=== PATIENT | female | born 1935 | race African-American/Black ===

== ENCOUNTER 2019-04-20 10:53 | Emergency (ER) | payer OTHER ==
--- NOTE | 2019-04-20 11:02 | PDOC ---
History of Present Illness - General History Source: Patient Exam Limitations: No Limitations - History of Present Illness Initial Comments: 04/20/19 10:57 HPI: 83yo F pmh HTN, CAD, renal failure, presenting from PCP office with chest discomfort for three days and EKG changes. Patient denies chest pain, endorsing a mild, non-exertional, non-radiating, substernal chest discomfort that has been constant since Monday 04/17, no aggravating or alleviating factors identified. Feels as though she needs to belch, but she is unable to, and when she does it does not provide relief. No exertion related pain or dyspnea, no edema. Denies nausea, vomiting, dizziness, shortness of breath. No recent travel / immobilization, no recent illnesses or trauma to the chest wall. Patient takes 81mg ASA daily. Patient called her education adviser (Dr. Pena, [facility]) yesterday and was told to go to the ER for her chest discomfort, she made an appointment with Dr. Mcallister who did an EKG demonstrating <1mm ST elevations in V3 , V4 that were different than on prior EKG. All: NKDA Meds: Per chart PMH: As above PSH: As above SHx: Denies toxic habits, never smoker <Robert Carreon - Last Filed: 04/20/19 14:37> <Doris Benjamin - Last Filed: 04/20/19 14:44> - General Chief Complaint: Chest Pain Stated Complaint: EKG CHANGES Time Seen by Provider: 04/20/19 10:54 Past History - Travel Traveled outside of the country in the last 30 days: No Close contact w/someone who was outside of country & ill: No - Past Medical History Anemia: Yes (SLIGHTLY ANEMIC) Asthma: No Cancer: No Cardiac Disorders: No CVA: No COPD: No CHF: No Dementia: No Diabetes: No GI Disorders: Yes (GERD) Disorders: No HTN: Yes Hypercholesterolemia: No Liver Disease: No Seizures: No Thyroid Disease: No - Surgical History Abdominal Surgery: No Appendectomy: No Cardiac Surgery: No Cholecystectomy: No Lung Surgery: No Neurologic Surgery: No Orthopedic Surgery: No - Psycho Social/Smoking Cessation Hx Smoking History: Never smoked Have you smoked in the past 12 months: No Hx Alcohol Use: No Drug/Substance Use Hx: No Substance Use Type: None Hx Substance Use Treatment: No <Robert Carreon - Last Filed: 04/20/19 14:37> <Doris Benjamin - Last Filed: 04/20/19 14:44> - Past Medical History Allergies/Adverse Reactions: Allergies Allergy/AdvReac Type Severity Reaction Status Date / Time No Known Drug Allergies Allergy Verified 04/20/19 10:55 Home Medications: Ambulatory Orders Amlodipine Bes/Olmesartan Med [Amlodipine-Olmesartan 10-40 mg] 1 each PO DAILY 12/16/17 Famotidine [Pepcid] 40 mg PO DAILY 12/16/17 Hydrochlorothiazide 50 mg PO DAILY 12/16/17 Aspirin [ASA -] 81 mg PO DAILY 04/20/19 Review of Systems - Review of Systems Able to Perform ROS?: Yes Is the patient limited Somali proficient: Yes Constitutional: No: Chills, Diaphoresis, Fever, Weakness HEENTM: No: Nose Congestion, Throat Pain Respiratory: Yes: Cough (chronic, dry). No: Orthopnea, Shortness of Breath, SOB with Exertion, SOB at Rest, Productive cough Cardiac (ROS): Yes: See HPI, Other (chest discomfort as per HPI). No: Chest Pain, Edema, Irregular Heart Rate, Lightheadedness, Palpitations, Syncope ABD/GI: No: Constipated, Diarrhea, Nausea, Poor Appetite, Poor Fluid Intake, Vomiting : No: Burning, Dysuria, Discharge, Frequency Musculoskeletal: No: Muscle Pain, Muscle Weakness Integumentary: No: Bruising, Erythema, Pruritus, Rash, Sweating Neurological: No: Headache, Numbness, Tingling, Weakness Psychiatric: No: Stressors, Change in Appetite Endocrine: No: Increased Thirst, Increased Urine Hematologic/Lymphatic: No: Anemia, Blood Clots, Easy Bleeding All Other Systems: Reviewed and Negative <Robert Carreon - Last Filed: 04/20/19 14:37> *Physical Exam - Physical Exam 04/20/19 11:38 Vitals reviewed, AFVSS GEN: Elderly woman, Well appearing, appears stated age, NAD, comfortable. AAOx3. HEENT: NCAT, EOMI. Sclera anicteric, non-injected. Moist mucous membranes. Normal voice. Trachea midline. CV: RRR, S1/S2, +ejection murmur heard best at right sternal margin. LUNG: CTAB, normal work of breathing. No wheezes, rales, rhonchi. No cough. Speaking full sentences. GI: Soft, NTND, no guarding, no rebound. No masses. EXTREMITIES: 2+ distal pulses. No LE edema. No obvious deformities of all extremities. SKIN: Warm, dry, no rashes appreciated, non-jaundiced. PSYCH: Normal mood and affect. Cooperative and appropriate. NEURO: CN grossly intact. Moving all extremities well. Normal strength and sensation grossly. <Robert Carreon - Last Filed: 04/20/19 14:37> - Vital Signs Last Vital Signs Temp Pulse Resp BP Pulse Ox 97.8 F 56 L 20 110/58 L 100 04/20/19 10:53 04/20/19 12:09 04/20/19 12:09 04/20/19 12:09 04/20/19 12:09 <Doris Benjamin - Last Filed: 04/20/19 14:44> Heart Score/ECG Review - History History: Moderately suspicious - Electrocardiogram EKG: Non specific repolarization disturbance - Age Age: >/= 65 - Risk Factors Based on the list above the patient has:: >/=3 risk factors or Hx atherosclerotic disease - Troponin Troponin: </= normal limit - Score Heart Score - Total: 6 <Robert Carreon - Last Filed: 04/20/19 14:37> ED Treatment Course - LABORATORY CBC & Chemistry Diagram: 04/20/19 11:29 04/20/19 11:29 <Robert Carreon - Last Filed: 04/20/19 14:37> - LABORATORY CBC & Chemistry Diagram: 04/20/19 11:29 04/20/19 11:29 - ADDITIONAL ORDERS Additional order review: Laboratory Results 04/20/19 04/20/19 04/20/19 11:29 11:29 11:29 PT with INR 12.3 INR 1.10 PTT (Actin FS) 25.8 Sodium 138 Potassium 4.6 Chloride 105 Carbon Dioxide 26 Anion Gap 7 L BUN 34.0 H Creatinine 1.9 H Est GFR (CKD-EPI)AfAm 28.16 Est GFR (CKD-EPI)NonAf 24.30 Random Glucose 102 Calcium 9.4 Total Bilirubin 1.3 H AST 32 ALT 17 Alkaline Phosphatase 44 L Creatine Kinase 159 Creatine Kinase Index 1.5 CK-MB (CK-2) 2.5 Troponin I Total Protein 6.9 Albumin 4.2 04/20/19 11:29 PT with INR INR PTT (Actin FS) Sodium Potassium Chloride Carbon Dioxide Anion Gap BUN Creatinine Est GFR (CKD-EPI)AfAm Est GFR (CKD-EPI)NonAf Random Glucose Calcium Total Bilirubin AST ALT Alkaline Phosphatase Creatine Kinase Creatine Kinase Index CK-MB (CK-2) Troponin I < 0.03 Total Protein Albumin 04/20/19 11:29 RBC 3.90 MCV 95.5 MCHC 32.8 RDW 14.4 MPV 7.5 Neutrophils % 49.7 Lymphocytes % 37.7 Monocytes % 9.6 Eosinophils % 2.2 Basophils % 0.8 - Medications Given in the ED: ED Medications Discontinued Medications Generic Name Dose Route Start Last Admin Trade Name Freq PRN Reason Stop Dose Admin Sodium Chloride 500 ml 04/20/19 14:02 04/20/19 14:38 Normal Saline - IV 04/20/19 14:03 Not Given ONCE ONE <Doris Benjamin - Last Filed: 04/20/19 14:44> Medical Decision Making - Medical Decision Making 04/20/19 11:02 83yo F pmh HTN, CAD, renal failure, presenting from PCP office with chest discomfort for three days and EKG changes. HEART Score 6 assuming normal Troponin. - CBC, CMP, Cardiac Profile, Coags - EKG, CXR EKbpm, NSR, normal axis, normal intervals (QTc 402), 0.5mm ST elevation in V4, V5 resolved since PCP EKG 04/20/19 12:30 - Cr 1.9, baseline normal CR - Ordered urine creatinine, sodium, protein, UA - Troponin negative Admit: Tele r/o ACS, PERICO 04/20/19 14:37 Patient requested to leave AMA. Patient is determined to be of sound mind and reasoning. The patient fully understands the care they are refusing and the risks associated with leaving before complete medical evaluation as explained by the medical team. The patient has been provided with a discharge summary, return precautions, and the reassurance that the Emergency Department will resume workup if the patient changes their mind. Immediate primary care follow up has been urged. <Robert Carreon - Last Filed: 04/20/19 14:37> Discharge - Discharge Information Problems reviewed: Yes - Admission Yes <Robert Carreon - Last Filed: 04/20/19 14:37> - Discharge Information Problems reviewed: Yes - Admission No <Doris Benjamin - Last Filed: 04/20/19 14:44> - Discharge Information Clinical Impression/Diagnosis: Chest pain, rule out acute myocardial infarction, PERICO (acute kidney injury) Condition: Guarded Disposition: AGAINST MEDICAL ADVICE - Patient Discharge Instructions Patient Printed Discharge Instructions: DI for Chest Pain Additional Instructions: You are leaving against medical advice and refusing evaluation and treatment of chest pain concerning for acute coronary syndrome (heart attack). It is essential that you follow up with your primary care physician within the next 1-2 days. Please return to the Emergency Department if you change your mind and wish to continue evaluation of your symptoms or if you experience any of the following: - worsening of your symptoms - chest pain - shortness of breath and/or difficulty breathing - seizure - changes in behavior - lightheadedness, and/or dizziness - severe abdominal pain - severe or bloody vomiting - bloody diarrhea - inability to eat or drink - anything that concerns you
[2019-04-20 11:05] VITALS: TEMP 97.8; BMI 29.9
--- NOTE | 2019-04-20 11:18 | PDOC ---
Attending Attestation - Resident Resident Name: Robert Carreon - ED Attending Attestation I have performed the following: I have examined & evaluated the patient, The case was reviewed & discussed with the resident, I agree w/resident's findings & plan, Exceptions are as noted - HPI HPI: 83 yo F history HTN, CAD, CKD sent by Dr. Meier for 3 day history of chest discomfort with EKG changes noted in precordial leads. Pt describes her symptoms as discomfort, substernal, nonradiating, associated with sensation as if she needs to belch. Denies N/V, SOB, leg swelling. She contacted her inspection manager, who recommended she go to the ED. She followed up at Dr. Mcallister's office, and they referred her to the ED. - Physicial Exam PE: GENERAL: Awake, alert, and fully oriented, in no acute distress HEAD: No signs of trauma EYES: PERRLA, EOMI, sclera anicteric, conjunctiva clear ENT: Auricles normal inspection, hearing grossly normal, nares patent, oropharynx clear without exudates. Moist mucosa NECK: Normal ROM, supple, no lymphadenopathy, JVD, or masses LUNGS: Breath sounds equal, clear to auscultation bilaterally. No wheezes, and no crackles HEART: Regular rate and rhythm, normal S1 and S2, no murmurs, rubs or gallops ABDOMEN: Soft, nontender, normoactive bowel sounds. No guarding, no rebound. No masses EXTREMITIES: Normal range of motion, no edema. No clubbing or cyanosis. No cords, erythema, or tenderness NEUROLOGICAL: Cranial nerves II through XII grossly intact. Normal speech, normal gait. Motor and sensation intact SKIN: Warm, dry, normal turgor, no rashes or lesions noted. - Medical Decision Making Pt with cardiac risk factors, presenting with EKG changes on outpatient EKG, largely resolved now (except in V4). Will prepare for admission for cardiac evaluation.
[2019-04-20 11:38] LABS: BASO % 0.8 % (0-2.0); EOS % 2.2 % (0-4.5); HEMATOCRIT 37.3 % (32.4-45.2); HEMOGLOBIN 12.2 GM/dl (10.7-15.3); LYMPH % 37.7 % (8-40); MCH 31.3 pg (25.7-33.7); MCHC 32.8 g/dl (32.0-36.0); MEAN CELL VOLUME 95.5 fl (80-96); MEAN PLT VOLUME 7.5 fl (7.5-11.1); MONO % 9.6 % (3.8-10.2); NEUT % 49.7 % (42.8-82.8); PLATELET COUNT 245 K/MM3 (134-434); RDW 14.4 % (11.6-15.6); WHITE BLOOD COUNT 5.1 K/mm3 (4.0-10.8)
[2019-04-20 12:01] LABS: ALBUMIN 4.2 g/dl (3.4-5.0); BILIRUBIN,TOTAL 1.3 mg/dl (0.2-1); CALCIUM 9.4 mg/dl (8.5-10); CREATININE 1.9 mg/dl (0.55-1.3); POTASSIUM 4.6 mmol/L (3.5-5.1); TOT PROT 6.9 g/dl (6.4-8.2)
[2019-04-20 12:06] LABS: INR 1.1 (0.82-1.09); PROTHROMBIN TIME (PATIENT) 12.3 SEC (10.2-13.0)
[2019-04-20 12:15] VITALS: BP 110/58; PULSE 56
[2019-04-20] MEDS ORDERED: SODIUM CHLORIDE 0.9% 500 ML INFUS.BAG IV ONE (14:02)
--- NOTE | 2019-04-21 12:51 | EKG ---
Test Reason : Blood Pressure : / mmHG Vent. Rate : 061 BPM Atrial Rate : 061 BPM P-R Int : 166 ms QRS Dur : 096 ms QT Int : 400 ms P-R-T Axes : 053 050 060 degrees QTc Int : 402 ms NORMAL SINUS RHYTHM VOLTAGE CRITERIA FOR LEFT VENTRICULAR HYPERTROPHY EARLY REPOLARIZATION ABNORMAL ECG NO PREVIOUS ECGS AVAILABLE Confirmed by MAXINE SANCHEZ MD ([id number]) on 04/21/2019 12:50:32 PM Referred By: MAO COLES Confirmed By:MAXINE SANCHEZ MD
[2019-04-24 16:07] LABS: TOTAL PROTEIN, URINE 13.6 mg/dL (Not Estab.)
== END 2019-04-20 14:55 | disposition left against medical advice (07) ==
LOC: FER 10:53
DX: R07.9 Chest pain, unspecified (principal); I13.10 Hypertensive heart and chronic kidney disease without heart failure, with stage 1 through stage 4 chronic kidney disease, or unspecified chronic kidney disease; N18.9 Chronic kidney disease, unspecified; K21.9 Gastro-esophageal reflux disease without esophagitis
CPT/HCPCS: 36415; 71045-TC-FY; 80053; 81003; 81015; 82550; 82553; 82565; 84156; 84157; 84300; 84484; 85025; 85610; 85730; 93005; 99284-25

== ENCOUNTER 2019-05-18 07:23 | Day surgery (SDC) | payer OTHER ==
[2019-05-16 10:16] VITALS: BMI 27.8
[2019-05-18 07:41] VITALS: TEMP 98.2
[2019-05-18] MEDS ORDERED: PROPOFOL 20 ML ONE ×2 (07:42)
[2019-05-18] MEDS ORDERED: LIDOCAINE HCL/PF 2% SDV 5ML VIAL ONE (07:42)
[2019-05-18 09:36] VITALS: BP 135/65; PULSE 68
--- NOTE | 2019-05-19 15:47 | PATH ---
Surgical Pathology Report Patient Name: CHRIS DESIR [facility]. Rec. #: [id number] /Age/Gender: 1935 (Age: 83) / F Account: [id number] Location: [facility] Taken: 05/18/2019 Received: 05/18/2019 Reported: 05/19/2019 Physicians: Dread Ball M.D. Specimen(s) Received A: POLYP RIGHT COLON B: POLYP HEPATIC FLEXURE C: POLYPECTOMY TRANSVERSE COLON Clinical History Screening Postoperative diagnosis: Colon polyps, diverticulosis Final Diagnosis A. COLON, RIGHT, POLYP, BIOPSY: TUBULAR ADENOMA. B. COLON, HEPATIC FLEXURE, POLYP, BIOPSY: TUBULAR ADENOMA. C. TRANSVERSE COLON, POLYPECTOMY: TUBULAR ADENOMA. Electronically Signed Tracey Jeffries M.D. Gross Description A. Received in formalin, labeled "biopsy polyp right colon" is a quiñonez, irregular portion of soft tissue measuring 0.5 cm. in greatest dimension. The specimen is submitted in toto in one cassette. B. Received in formalin, labeled "biopsy polyp hepatic flexure" are 2 quiñonez, irregular portions of soft tissue measuring 0.3 and 0.5 cm. in greatest dimension. The specimens are submitted in toto in one cassette. C. Received in formalin, labeled "polypectomy transverse colon" are 2 quiñonez, irregular portions of soft tissue measuring 0.4 and 0.5 cm. in greatest dimension. The specimens are submitted in toto in one cassette. DL/05/18/2019 saudi/05/18/2019
== END 2019-05-18 09:45 | disposition home or self-care (01) ==
LOC: FASU-ENDO 07:23
PROVIDERS: ATTEND Internal Medicine Gastroenterology
PROC: 0DBL8ZX Excision of Transverse Colon, Via Natural or Artificial Opening Endoscopic, Diagnostic (ICD-10-PCS; 2019-05-18)
PROC: 0DBK8ZX Excision of Ascending Colon, Via Natural or Artificial Opening Endoscopic, Diagnostic (ICD-10-PCS; 2019-05-18)
PROC: 0DBK8ZX Excision of Ascending Colon, Via Natural or Artificial Opening Endoscopic, Diagnostic (ICD-10-PCS; principal; 2019-05-18 08:34)
DX: Z12.11 Encounter for screening for malignant neoplasm of colon (principal); D12.2 Benign neoplasm of ascending colon; D12.3 Benign neoplasm of transverse colon
CPT/HCPCS: 88305-TC

== ENCOUNTER 2023-01-04 05:03 | Day surgery (SDC) | payer BC, OTHER ==
[2022-12-31 14:11] VITALS: BMI 24.7
[2023-01-04] MEDS ORDERED: ONABOTULINUMTOXINA 200 UNIT/VIAL VIAL IM ONE (12:11)
[2023-01-04 14:23] VITALS: RESP 18
[2023-01-04 14:27] VITALS: BP 140/64; PULSE 70; TEMP 97.2
== END 2023-01-04 14:00 | disposition home or self-care (01) ==
LOC: JASU-SURG 05:03
PROVIDERS: ATTEND Surgery
PROC: 3E023GC Introduction of Other Therapeutic Substance into Muscle, Percutaneous Approach (ICD-10-PCS; principal; 2023-01-04 12:00)
DX: K43.9 Ventral hernia without obstruction or gangrene (principal)
CPT/HCPCS: 94760; J0585

== ENCOUNTER 2024-07-15 19:49 | Emergency (ER) | payer BC, OTHER ==
[2024-07-15 20:20] VITALS: BP 140/60; PULSE 74; RESP 16; TEMP 98.8; BMI 24.0
[2024-07-15 20:47] LABS: EPITHELIAL CELLS 0-2 /hpf
[2024-07-15 21:07] LABS: ABSOLUTE IMMATURE GRANULOCYTES 0.01 x10^3/uL (0.0-0.031); BASOPHILS # 0.01 x10^3/uL (0.01-0.08); EOSINOPHIL % 2.2 % (0.7-5.8); EOSINOPHILS # 0.11 x10^3/uL (0.04-0.36); HEMOGLOBIN 11.3 g/dL (11.2-15.7); MCHC 33.2 g/dl (32.2-35.5); MEAN CELL VOLUME 96.3 fl (79.4-94.8); MEAN PLT VOLUME 9.1 fl (9.4-12.3); MONOCYTE # 0.69 x10^3/uL (0.24-0.86); MONOCYTE % 13.6 % (4.7-12.5); PLATELET COUNT 228 x10^3/uL (182-369); RDW 15.4 % (12.5-17.0)
[2024-07-15 21:30] LABS: ALBUMIN 3.9 g/dl (3.4-5.0); BILIRUBIN,TOTAL 0.7 mg/dl (0.2-1); CALCIUM 9.4 mg/dl (8.5-10.1); CREATININE 1.8 mg/dl (0.6-1.3); POTASSIUM 4.7 mmol/L (3.5-5.1); TOT PROT 6.2 g/dl (6.4-8.2)
== END 2024-07-15 23:10 | disposition home or self-care (01) ==
LOC: FER 19:49
DX: R53.83 Other fatigue (principal); R14.0 Abdominal distension (gaseous); R94.31 Abnormal electrocardiogram [ECG] [EKG]
CPT/HCPCS: 36415; 71045-TC-FY; 80053; 81003; 81015; 84484; 85025; 93005; 99285-25

== ENCOUNTER 2024-12-05 10:34 | Day surgery (SDC) | payer BC, OTHER ==
[2024-11-29 15:52] VITALS: BMI 25.0
[2024-12-05 13:32] VITALS: RESP 17; TEMP 97.6
[2024-12-05 13:40] VITALS: BP 171/82; PULSE 88
== END 2024-12-05 13:10 | disposition home or self-care (01) ==
LOC: FASU-ENDO 10:34
PROVIDERS: ATTEND Internal Medicine Gastroenterology
PROC: 0DB78ZX Excision of Stomach, Pylorus, Via Natural or Artificial Opening Endoscopic, Diagnostic (ICD-10-PCS; 2024-12-05)
PROC: 0DB68ZX Excision of Stomach, Via Natural or Artificial Opening Endoscopic, Diagnostic (ICD-10-PCS; principal; 2024-12-05 12:11)
DX: K29.50 Unspecified chronic gastritis without bleeding (principal); K31.89 Other diseases of stomach and duodenum
CPT/HCPCS: 88305-TC; 88342-TC